=== PATIENT | female | born 1970 | race African-American/Black ===

== ENCOUNTER 2024-05-09 08:28 | Outpatient (AMB) | payer OTHER, SELFPAY ==
[2024-05-09 08:37] VITALS: BMI 47.7
--- NOTE | 2024-05-09 08:37 | A.OFFVIS_ITS ---
VS Expanded 05/09/24 08:37 05/22/24 12:08 Height 5 ft 7 in 5 ft 7 in Weight 304 lb 7.334 oz 304 lb BMI 47.7 47.6 Intake Visit Reasons: T2DM/LVM Allergies cat dander Allergy (Unknown, Verified 05/22/24 12:36) Hives dog dander Allergy (Unknown, Verified 05/22/24 12:36) Hives Seasonal Allergies Allergy (Unknown, Verified 05/22/24 12:36) Itchy Eyes shellfish Allergy (Unknown, Uncoded 05/22/24 12:36) Itching Medication List - Last Reconciled 05/22/[address], LDN cholecalciferol (vitamin D3) 125 mcg PO DAILY empagliflozin (Jardiance) 25 mg PO DAILY glucagon 3 mg/actuation (Baqsimi) mg intranasal insulin aspart U-100 (Novolog FlexPen U-100 Insulin aspart) 1 sliding scale dose subcut USEASDIRECTD insulin glargine 76 units subcut BID metformin ER 1,000 mg PO BID simvastatin 40 mg PO BEDTIME Nutrition Presentation Details: Pt presents for MNT for T2DM with morbid obesity. The Pt was referred by Irma Hudson NP/ Dr. Fifi Vallejo from [facility] . PCP Fifi Vallejo. Pt is followed by mammographer : Perla JOHNSON at [facility] followed by [employer]ATOR [employer]: Jane Dawkins from [facility] Pt reports not having a meal routine, reports having challenges with meal modification r/t multiple medical conditions: iron def anemia , CA (hx of pancreatic tail adenocarcinoma treated with chemotherapy and distal pancreatectomy with splenectomy in 06/2021) Reports often feeling tired and snacks on foods with sugar for energy. Pt prepares own food food frequency fruits: 0-1/d fish: not including, and is allergic to shellfish dairy: 2-3 x/d vegetables: 2-3 x/wk starches > 20 serving/d beverages: diet beverages, water, juices physical activity: daily life activities EOTH/--- BS Monitoring Most Recent Diabetes Results: No Data to Display KMH-Jwognex-Cq.Jeor Equation Height: 5 ft 7 in Weight: 304 lb Resting Metabolic Rate: 2028.25 Calculated Activity Level: Sedentary Calories Needed to Maintain Weight: 2435.10 Diagnosis Nutrition problem #1: food nutri know defi As related to (etiology) #1: diagnosis As evidenced by (sign/symptom) #1: knowledge deficit of diet [facility] Medical History (Updated 05/22/24 @ 12:[address], LDN) Asthma Blind left eye GERD (gastroesophageal reflux disease) HLD (hyperlipidemia) FRANCO (obstructive sleep apnea) Morbid obesity Pancreatic cancer Neuropathy Retinopathy History of DVT (deep vein thrombosis) Anxiety about health Assessment & Plan Assessment & Plan (1) T2DM (type 2 diabetes mellitus): Code(s): E11.9 - Type 2 diabetes mellitus without complications Category: Medical Plan: Wt: 138 Kg ( 05/2024 ) Est kcal needs as per MSJ: 2400 (40% carb, 30% protein/fat) Est fluid needs as per 25-30 ml/d: 3542-2415 Est prot per day as per 1 g/kg bw: 138 Recommend fiber intake : 8-10 g per day and gradually increase to 25-28 g per day for women and 35-38 g for men or as tolerated Recommend sodium intake per day : less than 2000 mg Educated patient on: ( R = reviewed V = verbalizes understanding N/R = needs review N/A = not applicable * Food sources of carbohydrate, adequate serving sizes and its role in various health conditions: R V N/R * Differences between complex carbohydrates a simple carbohydrates, role of fiber in diet: R V N/R * Lean protein sources of foods: R V NR * Differences between types of fats and role in diet (mono on saturated fat fatty acids, saturated fatty acids, trans fats): R V N/R * Food sources of sodium in salt and healthy modifications for heart health in kidney health: R V R/V * Vitamins and minerals: R V N/R * Healthy plate method concept: R * Physical activity: Benefits a precaution: R V N/R * Hypoglycemia protocol (rule of 15): R * Dietary prevention of Hyperglycemia: R V R/V Patient Instructions: Work on having 3 scheduled meals per day following healthy plate method and 1-2 snacks per day reducing carbs as snack to 20 g with 7-14 g of protein - see meal ideas/snacks ideas Coding Level of Care Code Nutr Indiv Intake (83610) Diagnoses T2DM (type 2 diabetes mellitus) E11.9 Time Spent (min) 30
[2024-05-22 12:08] VITALS: BMI 47.6
== END 2024-05-09 09:15 | disposition home or self-care (01) ==
PROVIDERS: PCP Family Medicine; Visit Provider Dietitian, Registered
DX: E11.9 Type 2 diabetes mellitus without complications (principal)

== ENCOUNTER → 2024-05-09 08:28 | Outpatient (BNVA) | payer OTHER, SELFPAY | PROVIDERS: PCP Family Medicine; Visit Provider Dietitian, Registered | DX: E11.8 Type 2 diabetes mellitus with unspecified complications (principal); Z79.4 Long term (current) use of insulin | CPT/HCPCS: 97802 ==

== ENCOUNTER 2024-05-27 13:44 | Outpatient (AMB) | payer OTHER, SELFPAY ==
--- NOTE | 2024-05-27 13:46 | A.OFFVIS_ITS ---
Vital Signs 05/27/24 13:47 Height 5 ft 7 in Weight 306 lb BMI 47.9 Intake Visit Reasons: [id number] Intake Note: Patient presents for dizziness. Allergies cat dander Allergy (Unknown, Verified 05/27/24 13:49) Hives dog dander Allergy (Unknown, Verified 05/27/24 13:49) Hives Seasonal Allergies Allergy (Unknown, Verified 05/27/24 13:49) Itchy Eyes shellfish Allergy (Unknown, Uncoded 05/27/24 13:49) Itching Medication List - Last Reconciled 05/27/24 by JONY Gonzalez cetirizine 10 mg PO DAILY cholecalciferol (vitamin D3) 125 mcg PO DAILY empagliflozin (Jardiance) 25 mg PO DAILY glucagon 3 mg/actuation (Baqsimi) mg intranasal insulin aspart U-100 (Novolog FlexPen U-100 Insulin aspart) 1 sliding scale dose subcut USEASDIRECTD insulin glargine 76 units subcut BID losartan 25 mg PO DAILY metformin ER 1,000 mg PO BID simvastatin 40 mg PO BEDTIME HPI Comments Details: Right-handed 53-yr-old female presents for new pt evaluation of headache disorder. Pt is accompanied by her , Ahsan. Pt reports she has had episodes dizziness a/w headaches which started about 6 months ago, and have worsened in the past 4 months. She describes her dizziness as difficulty with balance d/t feeling lightheaded and room spinning dizziness, nausea, headache. This is triggered by standing up or walking around. May need to sit back down or stand still, which helps the lightheadedness, and eventually the nausea. But the headache can persist longer. This can occur 3-4 times a day every day. Meclizine may help some. Also endorses: at times cannot feel the ground when walking, increasing dizziness w/o the dizziness, motion sickness at times (did not have when younger). BLE neuropathy- BLE, RLE > LLE,numbness, shooting pain in her foot, leg will feel like it will give out when standing still- dx'd by podiatry on clinical exam. Typical headache characteristics: Prodrome symptoms: Unsure Aura: Denies Pain intensity: moderate Location, quality, characteristics: Bilateral throbbing pain Associated symptoms: nausea, spinning dizziness, lightheadedness, fatigue, cognitive difficulties, activity intolerance, Postdrome: Unsure Triggers: bending over Time of day: No specific time of day Duration and Frequency: ebbs and flows over a day, at least 5 headache days per week How does headache impact your life? does not go anywhere by herself. Current acute medication use/interventions: Tylenol- helps some Current preventative medication use: none Non-pharmacological interventions: rest, sitting down. PMH and ROS are notable for:? Musculoskeletal disorders or injury: left shoulder pain- had cortisone inj- helped some, lower back pain. F/b Dr Nguyen at [place]. Legs cramps. H/o right ankle fx s/p fall on the ice s/p ORIF (Oct 2023). Mood d/o: Anxiety at x's Respiratory d/o: Asthma - seasonal Sleep: Has h/o FRANCO but recent HST was inconclusive so has appt next week to discuss having f/u in-lab PSG. CV disease: HTN HLD Clotting or hematology d/o: right ICA s/p prot placement- was started on Eliquis. Endocrine or metabolic d/o: Diabetes- last HgA1C 9%. Has 3 known benign thyroid nodules. GI d/o: IBS- lose stool predominant. PROFESSOR OF HISTORY: s/p total hysterectomy. Family history of migraine or other neuro disorder: none, but paternal family history is not known. Pertinent denials include: Tinnitus, hearing loss. History of concussion/head injury, History of seizure, syncope, or drop attacks. Lifestyle considerations: Sleep routine: Usual bedtime: 10pm and wake-up time: 8am Caffeine use: 1 cups per day Substance use: Denies Exercise:?None Employment:?not working [facility] Medical History (Updated 05/27/24 @ 21:07 by JONY Gonzalez) Asthma Blind left eye GERD (gastroesophageal reflux disease) HLD (hyperlipidemia) FRANCO (obstructive sleep apnea) Morbid obesity Pancreatic cancer Neuropathy Retinopathy History of DVT (deep vein thrombosis) Anxiety about health Surgical History (Updated 05/27/24 @ 15:02 by JONY Gonzalez) History of partial pancreatectomy History of ankle surgery H/O splenectomy H/O eye surgery History of rotator cuff surgery H/O: hysterectomy Family History (Updated 05/27/24 @ 13:53 by FILIBERTO Fox) Son Diabetes Social History (Updated 05/27/24 @ 13:53 by FILIBERTO Fox) Alcohol intake: never Patient Tobacco Use Status: Never used Tobacco Physical Exam Vital Signs: BMI result Body Mass Index 47.9 Const Orientation/consciousness: patient oriented x3 Resp Effort & Inspection: normal respiratory effort and able to speak in complete sentences Neuro Other: Left eye- blindness- chronic. Facial asymmetry- Right cheek per prominent than left, R > L palpabrel fissure. No palpable scalp tenderness. Mild dysmetria on pt-pt finger-nose. Positive Romberg RUE and RLE MS 5-/5 LUE MS 4+/5, LLE 5-/5 DTRs dulled trhoughout. Stands slowly, elicits dizziness. General: patient oriented x3 and Normal light touch and pain sensation Cranial nerves: Yes Bilaterally intact EOM present, Yes Midline tongue present, Yes Symmetric palate elevation present, Yes Ability to bilaterally rotate head present and Yes Ability to bilaterally elevate shoulders present Cognition (Neuro): normal cognition Gait exam (Neuro): Normal gait present Motor exam (neuro): 5/5 motor strength present throughout Psych Appearance: grossly normal Mental Status: mental status grossly normal Speech and movement: Normal speech and movement present Affect: normal affect Attitude: cooperative Thought process: Normal thought process present Results Reviewed Results Reviewed: [facility] Imaging Result Report Patient: Andree Navarrete I Date of Service: 10/16/23 ? ? Patient Gender: Female Ordering Provider: Fifi Vallejo : 1970 ? ? ? Final MRI OF BRAIN NO CONTRAST Exam Date: 10/16/2023 5:16 PM Ordering Diagnosis: Pancreatic adenocarcinoma (HCC)Dizziness ? EXAM: Brain MRI ? HISTORY: Dizziness and lightheadedness. History of pancreatic adenocarcinoma. ? COMPARISON: None ? CORRELATION: None ? TECHNIQUE: Exam performed on a 1.5 Karen high-field MRI scanner. Multiplanar imaging performed without contrast. ? FINDINGS: ? No restricted diffusion to indicate a recent infarct. No evidence of intracranial hemorrhage. Several T2/FLAIR hyperintense foci scattered in the white matter. ? No evidence of a mass, mass effect, or midline shift. No hydrocephalus. Basal cisterns are patent. No cerebellar ectopia. Pituitary gland is not enlarged. Normal vascular flow-voids appear present in the major intracranial arteries at the skull base. ? No significant paranasal sinus disease or significant fluid signal within mastoid air cells. Subcentimeter lesion in the medial left maxillary sinus with mild T1/T2 hyperintensity probably represents a retention cyst or polyp. T1/T2 hypointense band encasing the left globe compatible with a scleral buckle. ? IMPRESSION IMPRESSION: ? No evidence of an acute infarction, intracranial hemorrhage, mass, or mass effect. Nonspecific white matter signal abnormalities, very mild in degree, which can be seen with chronic small vessel ischemic disease, demyelinating disease, infection such as Lyme, vasculitis, and sequela of chronic migraine headaches. ? POS - [id number] ? Reading Radiologist: Assessment & Plan Assessment & Plan (1) Vertigo: Code(s): R42 - Dizziness and giddiness Category: Medical (2) Migraine without aura: Comment: ? 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 For overall dizziness and headache management: * Optimize good self-care, including but not limited to maintaining a healthy diet, adequate fluid intake, adequate sleep, and engaging in regular physical activity. * Track headaches, especially after any treatment regimen changes. Migraine BudGLIIF is one of many headache tracking apps. * Concur w/ f/u in-lab sleep study to assess for sleep apnea. For acute headache treatment: Discussed importance of taking acute medications at the first sign of headache, however stressed importance of avoiding acute medication overuse (especially with combined headache medications). Trial Sumatriptan 100mg tab, 1/2 - 1 tab (50-100mg) at onset of headache, may repeat in 2 hours. Max of 2 tabs (200mg) per 24 hours. May adjunct with OTC Tylenol 650mg q 4 hours prn. Potential adverse effects of triptans, including but not limited to nausea, fatigue, chest tightness/tingling (usually passes within a few minutes), medication overuse headaches. Previous acute migraine medication trials: Tylenol- not fully effective. Acute migraine medication contraindications: None at this time For dizziness and headache prevention medication: Preventative medications should be taken routinely as prescribed for best eff ect, it may take several weeks for full effect to take effect. Start Riboflavin 400mg qam Start Magnesium 400mg qhs Previous migraine prevention medication trials: None Migraine prevention medication contraindications: None at this time- HTN is well-controlled. Case discussed with Dr Felicia Montes. F/u upon review of above and Pt to follow-up in 4 months or sooner prn. Orders: Orders MR head/brain wo/w con 05/27/24 Q67.0 - Congenital facial asymmetry, R42 - Dizziness and giddiness, R51.9 - Headache, unspecified MR orbits face neck wo/w con 05/27/24 Q67.0 - Congenital facial asymmetry, R42 - Dizziness and giddiness, R51.9 - Headache, unspecified Medications: New magnesium oxide may hold for loose stools 400 mg PO BEDTIME 30 tabs 6RF 30 days sumatriptan succinate 50 - 100 mg orally at onset of headache, may repeat in 2 hrs PRN; max 2 tabs per day or 4 tabs/week (may take with Ibuprofen) 12 tabs 6RF migraine headache 30 days riboflavin (vitamin B2) 400 mg PO DAILY 30 tabs 6RF 30 days Coding Level of Care Code New Pt Level 4 (93945) Diagnoses Vertigo R42 Migraine without aura G43.009 Facial asymmetry Q67.0
[2024-05-27 13:47] VITALS: BMI 47.9
== END 2024-05-27 15:12 | disposition home or self-care (01) ==
PROVIDERS: PCP Family Medicine; Visit Provider Nurse Practitioner Family
DX: R42 Dizziness and giddiness (principal); G43.009 Migraine without aura, not intractable, without status migrainosus; Q67.0 Congenital facial asymmetry
CPT/HCPCS: 99204

== ENCOUNTER → 2024-05-27 13:44 | Outpatient (BNVA) | payer OTHER, SELFPAY | PROVIDERS: PCP Family Medicine; Visit Provider Nurse Practitioner Family | DX: G43.009 Migraine without aura, not intractable, without status migrainosus (principal); R42 Dizziness and giddiness; Q67.0 Congenital facial asymmetry | CPT/HCPCS: 99202 ==

== ENCOUNTER 2024-08-10 15:08 | Outpatient (REF) | payer OTHER, SELFPAY ==
--- NOTE | ~2024-08-10 | MR_ITS ---
EXAMINATION: MR BRAIN WITHOUT AND WITH CONTRAST MR ORBITS WITHOUT AND WITH CONTRAST CLINICAL INFORMATION: Congenital facial asymmetry. Headache. Vertigo. COMPARISON: None available. TECHNIQUE: MRI of the brain and orbits was obtained using routine sequences without and following the administration of 10 mL of Gadavist intravenous contrast. FINDINGS: Moderately motion degraded. No focal restricted diffusion is demonstrated to suggest acute or subacute cerebral ischemia. No evidence of acute or chronic hemorrhagic products on heme-sensitive imaging. Few nonspecific scattered periventricular and deep white matter T2 FLAIR hyperintensities. Proportional prominence of the ventricles and sulcal spaces without evidence of obstructive hydrocephalus. No abnormal mass effect. No midline shift. Normal positioning of the cerebellar tonsils. No demonstrated abnormalities of the orbits. No significant preseptal or retrobulbar edema. Bilateral lens extractions. Left-sided scleral banding. Otherwise, normal Appearance of the globes. Normal symmetric appearance of the extraocular musculature. No abnormalities of the intraconal or extraconal adipose tissue. Normal appearance of the optic nerves and their sheaths. Normal appearance of the lacrimal glands. No orbital fluid collections. No abnormalities of the orbital apices. Normal appearance of the optic chiasm. Normal appearance of the pituitary gland and infundibulum. Normal appearance of the cavernous sinuses without abnormal filling defects. No demonstrated abnormalities of the intracranial internal carotid or anterior cerebral arteries. Normal arterial and venous vascular flow voids are present. No abnormal contrast enhancement. The visualized premaxillary, retromaxillary, pterygopalatine fossa, and temporal fossa adipose tissue is maintained. Normal, homogeneous marrow signal. Mild mucosal thickening of the paranasal sinuses. No signal abnormalities within the mastoids. MR/MR orbits face neck wo/w con IMPRESSION: 1. No acute intracranial abnormalities. No abnormal intracranial enhancement. 2. Mild nonspecific white matter changes. 3. No MRI abnormalities of the orbits to explain the patient's symptoms. Electronically signed by: Cezar Paul DO 09/11/2024 06:30 AM JESSY
[2024-08-10] MEDS: gadobutroL 10 ML VIAL IVPUSH (16:34)
== END 2024-08-10 15:09 | disposition home or self-care (01) ==
LOC: HO.MRI 15:08
PROVIDERS: PCP Family Medicine; Visit Provider Nurse Practitioner Family
DX: Q67.0 Congenital facial asymmetry (principal); R42 Dizziness and giddiness; R51.9 Headache, unspecified
CPT/HCPCS: 70543; 70553; A9585